=== PATIENT | male | born 1950 | race Caucasian/White ===

== ENCOUNTER 2024-09-15 09:53 | Emergency (ER) | payer OTHER ==
[~2024-09-15] VITALS: Ht 175.3 cm; Wt 86.2 kg
[~2024-09-15 09:53] MED LIST: ASPI81CH PO; ATOR20 PO; Aldactone25 MG PO; LISI5 PO; METO25ER PO; METO50ER; Prinivil10 MG PO; SPIR25 PO; XARELTO1 EACH; XARELTO20 MG PO
[2024-09-15 10:36] VITALS: BP 125/83
[2024-09-15] MEDS ORDERED: HYDROcodone 5-APAP 325 TAB PO ONE (10:45)
[2024-09-15] MEDS ORDERED: OxyCODONE HCL 5 MG TAB PO ONE (11:50)
[2024-09-15] MEDS ORDERED: OXAYDO5 M3 PO (16:15)
== END 2024-09-15 14:31 | disposition home or self-care (01) ==
LOC: ER 09:53
DX: S83.91XA Sprain of unspecified site of right knee, initial encounter (principal); Z87.891 Personal history of nicotine dependence; Z79.01 Long term (current) use of anticoagulants; Z79.82 Long term (current) use of aspirin; Z79.899 Other long term (current) drug therapy; W19.XXXA Unspecified fall, initial encounter; Y93.02 Activity, running
CPT/HCPCS: 73562-RT; 99283-25; A9270